=== PATIENT | female | born 1990 | race Caucasian/White ===

== ENCOUNTER 2018-11-13 16:30 | Emergency (ER) | payer BC, OTHER ==
[2018-11-13 16:39] VITALS: TEMP 97
[2018-11-13] MEDS ORDERED: METOCLOPRAMIDE 5 MG/ML 2 ML VIAL IVP STA (16:45)
[2018-11-13] MEDS ORDERED: SODIUM CHLORIDE 0.9% 2,000 ML IV STA (16:45)
[2018-11-13 17:33] LABS: Basophils % (A) 0 %; Eosinophils # (A) 0.2 k/uL (0-0.7); Eosinophils % (A) 2 %; HCT 41.3 % (34.0-46.0); HGB 13.8 gm/dL (11.4-16.0); Lymphocytes # (A) 1.8 k/uL (1.0-4.8); Lymphocytes % (A) 21 %; MCHC 33.5 g/dL (31.0-37.0); MCV 95.6 fL (80.0-100.0); Mean Platelet Volume 7.8; Monocytes # (A) 0.4 k/uL (0-1.0); Monocytes % (A) 4 %; Neutrophils % (A) 70 %; Platelet Count 263 k/uL (150-450); RBC 4.32 m/uL (3.80-5.40); RDW 13.2 % (11.5-15.5); WBC 8.5 k/uL (3.8-10.6)
[2018-11-13 17:41] LABS: Appearance,Urine Cloudy (Clear); Bacteria,Urine Rare /hpf; Bilirubin,Urine Negative (Negative); Blood,Urine Negative (Negative); Color,Urine Yellow; Glucose,Urine (UA) Negative (Negative); Ketones,Urine Negative (Negative); Leukocyte Esterase,Urine Large (Negative); Mucus,Urine Occasional /hpf; Nitrite,Urine Negative (Negative); Protein,Urine Trace (Negative); RBC,Urine 9 /hpf (0-5); Specific Gravity,Urine 1.021 (1.001-1.035); Squamous Epithelial Cell,Urine 14 /hpf (0-4); Urobilinogen,Urine <2.0 mg/dL (<2.0); WBC,Urine 22 /hpf (0-5)
[2018-11-13 17:44] LABS: ALT 32 U/L (9-52); AST 24 U/L (14-36); Albumin 4.4 g/dL (3.5-5.0); Alkaline Phosphatase 58 U/L (38-126); Anion Gap 10 mmol/L; Blood Urea Nitrogen 13 mg/dL (7-17); Calcium 9.7 mg/dL (8.4-10.2); Carbon Dioxide 20 mmol/L (22-30); Chloride 108 mmol/L (98-107); Glucose 103 mg/dL (74-99); Lipase 125 U/L (23-300); Potassium 4.2 mmol/L (3.5-5.1); Sodium 138 mmol/L (137-145); Total Bilirubin 0.6 mg/dL (0.2-1.3); Total Protein 7.5 g/dL (6.3-8.2)
--- NOTE | 2018-11-13 18:53 | US ---
EXAMINATION TYPE: Transabdominal DATE OF EXAM: 01/06/18 COMPARISON: NONE CLINICAL HISTORY: Pain. Patient states unable to keep anything down EXAM PERFORMED: Transabdominal (TA) EXAM MEASUREMENTS: GESTATIONAL AGE / DATING Physician Established: Not yet established Dates by LMP: (4 weeks/1 days) EDC: 07/22/2019 Dates by First Scan: No previous this is first scan Dates by Current Scan for: (7 weeks/6 days) EDC: 06/26/2019 MATERNAL ANATOMY Uterus: 10.8 x 6.4 x 7.6 cm Right Ovary: 2.9 x 1.8 x 2.6 cm Left Ovary: 1.6 x 1.5 x 3.2 cm Post CDS / Adnexa: wnl Presence of free fluid: none GESTATION / SURVEY CRL: 1.5 cm (7 weeks/6 days) Yolk Sac (normal less than 6mm): 3 mm Heart Rate: 148 bpm Rhythm: Normal IUP: Viable IUP Date of LMP: 10/15/2018 Beta HcG (if available): not available Live IUP that does not correlate with LMP. IMPRESSION: Single live intrauterine with a sonographic age of 7 weeks and 6 days and estimated date of delivery of 06/26/2019, discordant with menstrual age. No complicating process is identified.
--- NOTE | 2018-11-13 19:07 | ED ---
Abdominal Pain HPI - General Chief Complaint: Abdominal Pain Stated Complaint: , NAUSEA, VOMITING Time Seen by Provider: 11/13/18 16:45 Source: patient, RN notes reviewed Mode of arrival: ambulatory Limitations: no limitations - History of Present Illness Initial Comments: 28-year-old female sent emergency Department with chief complaint of nausea vomiting early . Patient states that she's never had this with other pregnancies. Patient is A1. Patient denies any vaginal bleeding or vaginal discharge. Patient states her REGRADER Dr. Lezama. Patient states that she does feel dehydrated. Patient reports no fever, chills, headache, dizziness , chest pain or shortness breath. - Related Data Home Medications Medication Instructions Recorded Confirmed Buprenorphine HCl/Naloxone HCl 1 film SL BID 11/13/18 11/13/18 [Suboxone 8 mg-2 mg Sl Film] Folic Acid 1 mg PO HS 11/13/18 11/13/18 Levothyroxine Sodium [Synthroid] 12.5 mcg PO HS 11/13/18 11/13/18 Sertraline [Zoloft] 100 mg PO HS 11/13/18 11/13/18 Previous Rx's Medication Instructions Recorded Metoclopramide [Reglan] 10 mg PO TID PRN #15 tab 11/13/18 Nitrofurantoin Monohyd/M-Cryst 100 mg PO Q12HR #10 cap 11/13/18 [Macrobid] Allergies Allergy/AdvReac Type Severity Reaction Status Date / Time Penicillins Allergy Anaphylaxis Verified 11/13/18 16:58 Review of Systems ROS Statement: Those systems with pertinent positive or pertinent negative responses have been documented in the HPI. ROS Other: All systems not noted in ROS Statement are negative. Past Medical History Past Medical History: Asthma Additional Past Medical History / Comment(s): Obstetric history: First was vaginal delivery 6#4oz, second was a vaginal delivery 7# 6oz. Third was a spontaneous . This is her fourth . A +, abs neg, Rub nonimmune, Hep B neg, HIV NR. normal anatomy US. GBS +. History of Any Multi-Drug Resistant Organisms: None Reported Past Surgical History: No Surgical Hx Reported Past Psychological History: Anxiety, Depression Smoking Status: Current every day smoker Past Alcohol Use History: None Reported Past Drug Use History: None Reported General Exam Limitations: no limitations General appearance: alert, in no apparent distress Head exam: Present: atraumatic, normocephalic, normal inspection Eye exam: Present: normal appearance, PERRL, EOMI. Absent: scleral icterus, conjunctival injection, periorbital swelling ENT exam: Present: normal exam, normal oropharynx, mucous membranes moist Neck exam: Present: normal inspection. Absent: tenderness, meningismus, lymphadenopathy Respiratory exam: Present: normal lung sounds bilaterally. Absent: respiratory distress, wheezes, rales, rhonchi, stridor Cardiovascular Exam: Present: regular rate, normal rhythm, normal heart sounds. Absent: systolic murmur, diastolic murmur, rubs, gallop, clicks GI/Abdominal exam: Present: soft, normal bowel sounds. Absent: distended, tenderness, guarding, rebound, rigid Back exam: Absent: CVA tenderness (R), CVA tenderness (L) Course Vital Signs 11/13/18 16:36 Temperature 97 F L Pulse Rate 72 Respiratory 18 Rate Blood Pressure 129/85 O2 Sat by Pulse 98 Oximetry Medical Decision Making - Medical Decision Making 28-year-old female presents emergency present for nausea vomiting . Patient has single viable IUP 7 weeks and 6 days. Patient does have asymptomatic bacteriuria in will be treated with Macrobid. Patient fully given antiemetics short course at home and she will follow-up with REGRADER. - Lab Data Result diagrams: 11/13/18 17:00 11/13/18 17:00 Lab Results 11/13/18 11/13/18 11/13/18 Range/Units 17:00 17:00 17:00 WBC 8.5 (3.8-10.6) k/uL RBC 4.32 (3.80-5.40) m/uL Hgb 13.8 (11.4-16.0) gm/dL Hct 41.3 (34.0-46.0) % MCV 95.6 (80.0-100.0) fL MCH 32.0 (25.0-35.0) pg MCHC 33.5 (31.0-37.0) g/dL RDW 13.2 (11.5-15.5) % Plt Count 263 (150-450) k/uL Neutrophils % 70 % Lymphocytes % 21 % Monocytes % 4 % Eosinophils % 2 % Basophils % 0 % Neutrophils # 6.0 (1.3-7.7) k/uL Lymphocytes # 1.8 (1.0-4.8) k/uL Monocytes # 0.4 (0-1.0) k/uL Eosinophils # 0.2 (0-0.7) k/uL Basophils # 0.0 (0-0.2) k/uL Sodium 138 (137-145) mmol/L Potassium 4.2 (3.5-5.1) mmol/L Chloride 108 H (98-107) mmol/L Carbon Dioxide 20 L (22-30) mmol/L Anion Gap 10 mmol/L BUN 13 (7-17) mg/dL Creatinine 0.52 (0.52-1.04) mg/dL Est GFR (CKD-EPI)AfAm >90 (>60 ml/min/1.73 sqM) Est GFR (CKD-EPI)NonAf >90 (>60 ml/min/1.73 sqM) Glucose 103 H (74-99) mg/dL Calcium 9.7 (8.4-10.2) mg/dL Total Bilirubin 0.6 (0.2-1.3) mg/dL AST 24 (14-36) U/L ALT 32 (9-52) U/L Alkaline Phosphatase 58 (38-126) U/L Total Protein 7.5 (6.3-8.2) g/dL Albumin 4.4 (3.5-5.0) g/dL Lipase 125 (23-300) U/L Urine Color Yellow Urine Appearance Cloudy H (Clear) Urine pH 6.0 (5.0-8.0) Ur Specific [place] 1.021 (1.001-1.035) Urine Protein Trace H (Negative) Urine Glucose (UA) Negative (Negative) Urine Ketones Negative (Negative) Urine Blood Negative (Negative) Urine Nitrite Negative (Negative) Urine Bilirubin Negative (Negative) Urine Urobilinogen <2.0 (<2.0) mg/dL Ur Leukocyte Esterase Large H (Negative) Urine RBC 9 H (0-5) /hpf Urine WBC 22 H (0-5) /hpf Ur Squamous Epith Cells 14 H (0-4) /hpf Urine Bacteria Rare H (None) /hpf Urine Mucus Occasional H (None) /hpf Disposition Clinical Impression: Nausea/vomiting in , Asymptomatic bacteriuria during Disposition: HOME SELF-CARE Condition: Stable Instructions (If sedation given, give patient instructions): Nausea and Vomiting in (ED) Additional Instructions: Please return to the Emergency Department if symptoms worsen or any other concerns. Prescriptions: Metoclopramide [Reglan] 10 mg PO TID PRN #15 tab PRN Reason: GERD Nitrofurantoin Monohyd/M-Cryst [Macrobid] 100 mg PO Q12HR #10 cap Is patient prescribed a controlled substance at d/c from ED?: No Referrals: Shruthi Piedra MD [Primary Care Provider] - 1-2 days Zina Lezama MD [REFERRING] - 1-2 days Time of Disposition: 19:07
[2018-11-13 19:31] VITALS: BP 112/80; PULSE 63; RESP 14
== END 2018-11-13 19:30 | disposition home or self-care (01) ==
LOC: EC 16:30
DX: O21.9 Vomiting of pregnancy, unspecified (principal); O99.89 Other specified diseases and conditions complicating pregnancy, childbirth and the puerperium; R82.71 Bacteriuria; R10.9 Unspecified abdominal pain; O99.281 Endocrine, nutritional and metabolic diseases complicating pregnancy, first trimester; E86.0 Dehydration; O99.341 Other mental disorders complicating pregnancy, first trimester; F41.9 Anxiety disorder, unspecified; F32.9 Major depressive disorder, single episode, unspecified; O99.331 Smoking (tobacco) complicating pregnancy, first trimester; F17.200 Nicotine dependence, unspecified, uncomplicated; Z79.890 Hormone replacement therapy; Z79.899 Other long term (current) drug therapy; Z88.0 Allergy status to penicillin; Z3A.01 Less than 8 weeks gestation of pregnancy
CPT/HCPCS: 36415; 80053; 83690; 85025; 81001; 84702; 87086; 76801; 99284; 96374; 96361 ×2; J2765

== ENCOUNTER 2020-10-03 13:32 | Emergency (ER) | payer BC, OTHER ==
[2020-10-03 13:35] VITALS: TEMP 97.6
[2020-10-03 14:37] VITALS: RESP 18
[2020-10-03 14:46] LABS: Basophils % (A) 1 %; Eosinophils # (A) 0.1 k/uL (0-0.7); Eosinophils % (A) 1 %; HCT 40.2 % (34.0-46.0); HGB 13.6 gm/dL (11.4-16.0); Lymphocytes # (A) 1.8 k/uL (1.0-4.8); Lymphocytes % (A) 22 %; MCH 34.2 pg (25.0-35.0); MCHC 33.8 g/dL (31.0-37.0); MCV 101.1 fL (80.0-100.0); Macrocytosis Slight; Mean Platelet Volume 7.5; Monocytes # (A) 0.4 k/uL (0-1.0); Monocytes % (A) 4 %; Neutrophils # (A) 5.9 k/uL (1.3-7.7); Neutrophils % (A) 71 %; Platelet Count 246 k/uL (150-450); RBC 3.98 m/uL (3.80-5.40); RDW 13.6 % (11.5-15.5); WBC 8.3 k/uL (3.8-10.6)
[2020-10-03 14:48] LABS: Appearance,Urine Clear (Clear); Bilirubin,Urine 1+ (Negative); Blood,Urine Small (Negative); Color,Urine Dark Yellow; Glucose,Urine (UA) Negative (Negative); Hyaline Casts,Urine 1 /lpf (0-2); Ketones,Urine Trace (Negative); Leukocyte Esterase,Urine Negative (Negative); Mucus,Urine Many /hpf; Nitrite,Urine Negative (Negative); Protein,Urine 1+ (Negative); RBC,Urine 2 /hpf (0-5); Squamous Epithelial Cell,Urine 3 /hpf (0-4); WBC,Urine 2 /hpf (0-5)
[2020-10-03 14:53] LABS: AST 24 U/L (14-36); African American GFR (CKD) >90 (>60 ml/min/1.73 sqM); Albumin 4.2 g/dL (3.5-5.0); Anion Gap 8 mmol/L; Blood Urea Nitrogen 10 mg/dL (7-17); Calcium 9.3 mg/dL (8.4-10.2); Carbon Dioxide 25 mmol/L (22-30); Chloride 105 mmol/L (98-107); Glucose 115 mg/dL (74-99); Non-African American GFR(CKD) >90 (>60 ml/min/1.73 sqM); Potassium 4.7 mmol/L (3.5-5.1); Sodium 138 mmol/L (137-145); Total Bilirubin 0.4 mg/dL (0.2-1.3); Total Protein 7.1 g/dL (6.3-8.2)
[2020-10-03 14:54] LABS: ALT 28 U/L (4-34); Alkaline Phosphatase 56 U/L (38-126)
[2020-10-03 15:09] LABS: HCG,Quantitative Serum 14954.2 mIU/mL
--- NOTE | 2020-10-03 15:37 | US ---
EXAMINATION TYPE: Transabdominal DATE OF EXAM: 10/03/2020 3:16 PM COMPARISON: NONE CLINICAL HISTORY: 7wks, bleeding, cramping x 1 day. ; C section x 1. Positive beta hCG test. EXAM PERFORMED: Transvaginal (TV) and Transabdominal (TA) EXAM MEASUREMENTS: GESTATIONAL AGE / DATING Physician Established: Not yet established Dates by LMP: (7 weeks/0 days) EDC: 05/22/2021 Dates by First Scan: No previous Dates by Current Scan for: (5 weeks/3 days) EDC: 05/07/2021 MATERNAL ANATOMY Uterus: 9.9 x 6.5 x 4.8cm Right Ovary: 2.5 x 2.5 x 2.0cm Left Ovary: 2.1 x 1.8 x 1.4cm Post CDS / Adnexa: wnl Presence of free fluid: no Presence of corpus luteal cyst: in right ovary = 1.3 x 1.6 x 1.2cm Presence of subchorionic bleed: no GESTATION / SURVEY CRL: no seen MSD: 1.3cm (5 weeks/3 days) Yolk Sac (normal less than 6mm): 2.6mm IUP: Single gestational sac with yolk sac is suspected mid uterus Date of LMP: 08/15/2020 Beta HcG (if available): NA Possible single gestational sac with yolk sac located mid uterus = 5 weeks/3 days, EDC: 05/07/2021. Anteverted uterus. There is oval anechoic area measuring 1.5 x 1.0 x 1.4 cm that has peripheral rim h yperechoic 3 mm structure. Findings could reflect early gestational sac and yolk sac. No pole i dentified. No free fluid in pelvis currently. Both ovaries seen with right ovary showing 1.3 cm peripheral hypervascular hyperechoic lesion thought to reflect corpus luteal cyst. No concerning extra ovarian adnexal masses. Technologist harper few incidental tiny nabothian cysts in the cervix. IMPRESSION: Findings favored too early to visualize intrauterine but spontaneous i s in differential and ectopic is not entirely excluded. Serial beta hCG and ultrasound foll ow-up advised.
--- NOTE | 2020-10-03 16:04 | ED ---
Female Urogenital HPI - General Chief complaint: Vaginal Bleeding Stated complaint: 7 Wks preg,Vaginal Bleeding Source: patient Mode of arrival: ambulatory Limitations: no limitations - History of Present Illness Initial comments: Patient is a 30-year-old female presenting to the emergency Department with complaints of vaginal bleeding as well as some mild cramping that started this morning. Patient is currently 7 weeks , , her TRACK DRESSER is out of [facility]. Patient states she did have a lab test 2 weeks ago which showed her beta levels around 200. Patient states she noticed some light bleeding this morning and it did become a little bit heavier throughout the days that she called her TRACK DRESSER and they recommended her coming into the ER. Patient has been having some very mild lower abdominal cramping no significant pains. She denies any nausea, vomiting, fever, chills, no chest pain or shortness of breath. Patient has no further complaints at this time. Upon arrival to the ER, her vitals are stable. - Related Data Home Medications Medication Instructions Recorded Confirmed Acetaminophen Tab [Tylenol Tab] 1,000 mg PO Q6HR PRN 10/03/20 10/03/20 Methadone [Dolophine] 75 mg PO DAILY 10/03/20 10/03/20 Allergies Allergy/AdvReac Type Severity Reaction Status Date / Time Penicillins Allergy Anaphylaxis Verified 10/03/20 14:06 Review of Systems ROS Statement: Those systems with pertinent positive or pertinent negative responses have been documented in the HPI. ROS Other: All systems not noted in ROS Statement are negative. Past Medical History Past Medical History: Asthma Additional Past Medical History / Comment(s): Obstetric history: First was vaginal delivery 6#4oz, second was a vaginal delivery 7#6oz. Third was a spontaneous . This is her fourth . A+, abs neg, Rub nonimmune, Hep B neg, HIV NR. normal anatomy US. GBS +. History of Any Multi-Drug Resistant Organisms: None Reported Past Surgical History: No Surgical Hx Reported Past Psychological History: Anxiety, Depression Smoking Status: Current every day smoker Past Alcohol Use History: None Reported Past Drug Use History: None Reported General Exam - General Exam Comments Initial Comments: GENERAL: Patient is well-developed and well-nourished. Patient is nontoxic and in no acute distress. HEAD: Atraumatic, normocephalic. EYES: Pupils equal round and reactive to light, extraocular movements intact, sclera anicteric, conjunctiva are normal. Eyelids were unremarkable. ENT: TMs normal, nares patent, oropharynx clear without exudates. Moist mucous membranes. NECK: Normal range of motion, supple without lymphadenopathy or JVD. LUNGS: Unlabored respirations. Breath sounds clear to auscultation bilaterally and equal. No wheezes rales or rhonchi. HEART: Regular rate and rhythm without murmurs, rubs or gallops. ABDOMEN: Soft, nontender, normoactive bowel sounds. No guarding, no rebound. No masses appreciated. MUSCULOSKELETAL: Normal extremities with adequate strength and normal range of motion, no pitting or edema. No clubbing or cyanosis. NEUROLOGICAL: Patient is alert and oriented x 3. Motor and sensory are also intact. Cranial nerves II through XII grossly intact. Symmetrical smile. Normal speech, normal gait. PSYCH: Normal mood, normal affect. SKIN: Warm, Dry, normal turgor, no rashes or lesions noted. Limitations: no limitations External exam: Present: normal external exam Speculum exam: Present: vaginal bleeding (Very mild) By manual exam: Present: normal by manual exam Course Vital Signs 10/03/20 10/03/20 10/03/20 13:34 14:35 15:00 Temperature 97.6 F Pulse Rate 109 H Respiratory 16 18 18 Rate Blood Pressure 142/93 O2 Sat by Pulse 99 Oximetry 10/03/20 10/03/20 16:00 16:09 Temperature 97.6 F Pulse Rate 89 Respiratory 18 18 Rate Blood Pressure 125/96 O2 Sat by Pulse 100 Oximetry Medical Decision Making - Medical Decision Making Patient is a 30-year-old female, currently 7 weeks , presenting with mild vaginal bleeding and mild cramping that started today. , TRACK DRESSER is out of [facility]. Vital signs stable upon arrival, her exam is unremarkable except for some mild vaginal bleeding. Labs show normal hemoglobin, hCG Quant is almost 15,000. Her urine has a small amount of blood, no signs of bacteria. Ultrasound reveals a possible single gestational sac with a yolk sac however no pole is yet identified. This could represent too early to visualize intrauterine but possible spontaneous miscarriage is possible. I discussed these findings with the patient. She is stable for discharge at this time. I will give her a lab slip to have beta retested and 40 hours. She can also follow up with her TRACK DRESSER. She is in agreement this plan of care. Return parameters were discussed with the patient she verbalized understanding. Case discussed with Dr. Hackett. - Lab Data Result diagrams: 10/03/20 14:36 10/03/20 14:36 Lab Results 10/03/20 10/03/20 10/03/20 Range/Units 14:36 14:36 14:36 WBC 8.3 (3.8-10.6) k/uL RBC 3.98 (3.80-5.40) m/uL Hgb 13.6 (11.4-16.0) gm/dL Hct 40.2 (34.0-46.0) % MCV 101.1 H (80.0-100.0) fL MCH 34.2 (25.0-35.0) pg MCHC 33.8 (31.0-37.0) g/dL RDW 13.6 (11.5-15.5) % Plt Count 246 (150-450) k/uL MPV 7.5 Neutrophils % 71 % Lymphocytes % 22 % Monocytes % 4 % Eosinophils % 1 % Basophils % 1 % Neutrophils # 5.9 (1.3-7.7) k/uL Lymphocytes # 1.8 (1.0-4.8) k/uL Monocytes # 0.4 (0-1.0) k/uL Eosinophils # 0.1 (0-0.7) k/uL Basophils # 0.0 (0-0.2) k/uL Macrocytosis Slight Sodium 138 (137-145) mmol/L Potassium 4.7 (3.5-5.1) mmol/L Chloride 105 (98-107) mmol/L Carbon Dioxide 25 (22-30) mmol/L Anion Gap 8 mmol/L BUN 10 (7-17) mg/dL Creatinine 0.61 (0.52-1.04) mg/dL Est GFR (CKD-EPI)AfAm >90 (>60 ml/min/1.73 sqM) Est GFR (CKD-EPI)NonAf >90 (>60 ml/min/1.73 sqM) Glucose 115 H (74-99) mg/dL Calcium 9.3 (8.4-10.2) mg/dL Total Bilirubin 0.4 (0.2-1.3) mg/dL AST 24 (14-36) U/L ALT 28 (4-34) U/L Alkaline Phosphatase 56 (38-126) U/L Total Protein 7.1 (6.3-8.2) g/dL Albumin 4.2 (3.5-5.0) g/dL HCG, Quant 13403.2 mIU/mL Urine Color Dark Yellow Urine Appearance Clear (Clear) Urine pH 6.0 (5.0-8.0) Ur Specific [place] 1.050 H (1.001-1.035) Urine Protein 1+ H (Negative) Urine Glucose (UA) Negative (Negative) Urine Ketones Trace H (Negative) Urine Blood Small H (Negative) Urine Nitrite Negative (Negative) Urine Bilirubin 1+ H (Negative) Urine Urobilinogen 3.0 (<2.0) mg/dL Ur Leukocyte Esterase Negative (Negative) Urine RBC 2 (0-5) /hpf Urine WBC 2 (0-5) /hpf Ur Squamous Epith Cells 3 (0-4) /hpf Hyaline Casts 1 (0-2) /lpf Urine Mucus Many H (None) /hpf Disposition Clinical Impression: , Threatened , Vaginal bleeding Disposition: HOME SELF-CARE Condition: Stable Instructions (If sedation given, give patient instructions): Threatened Miscarriage (ED) Additional Instructions: Please return to the Emergency Department if symptoms worsen or any other concerns. Repeat beta hCG in 48 hours as discussed. Follow up with her TRACK DRESSER. Is patient prescribed a controlled substance at d/c from ED?: No Referrals: Macario Cardozo DO [Primary Care Provider] - 1-2 days
[2020-10-03 16:13] VITALS: BP 125/96; PULSE 89
== END 2020-10-03 16:12 | disposition home or self-care (01) ==
LOC: EC 13:32
DX: O20.0 Threatened abortion (principal); Z3A.01 Less than 8 weeks gestation of pregnancy; O99.331 Smoking (tobacco) complicating pregnancy, first trimester; F17.200 Nicotine dependence, unspecified, uncomplicated; Z88.0 Allergy status to penicillin
CPT/HCPCS: 36415; 76801; 76817; 80053; 81001; 84702; 85025; 99284

== ENCOUNTER 2020-10-04 12:03 | Emergency (ER) | payer OTHER ==
[2020-10-04 12:15] VITALS: RESP 18
[2020-10-04 13:24] LABS: Basophils % (A) 0 %; Eosinophils # (A) 0.1 k/uL (0-0.7); Eosinophils % (A) 1 %; HCT 40.9 % (34.0-46.0); HGB 13.2 gm/dL (11.4-16.0); Lymphocytes # (A) 1.5 k/uL (1.0-4.8); Lymphocytes % (A) 20 %; MCH 32.3 pg (25.0-35.0); MCHC 32.2 g/dL (31.0-37.0); MCV 100.5 fL (80.0-100.0); Macrocytosis Slight; Mean Platelet Volume 7.8; Monocytes # (A) 0.4 k/uL (0-1.0); Monocytes % (A) 5 %; Neutrophils # (A) 5.2 k/uL (1.3-7.7); Neutrophils % (A) 72 %; Platelet Count 255 k/uL (150-450); RBC 4.07 m/uL (3.80-5.40); RDW 13.8 % (11.5-15.5); WBC 7.3 k/uL (3.8-10.6)
--- NOTE | 2020-10-04 14:11 | ED ---
Female Urogenital HPI - General Chief complaint: Vaginal Bleeding Stated complaint: 7 weeks and spotting Time Seen by Provider: 10/04/20 12:29 Source: patient Mode of arrival: ambulatory Limitations: no limitations - History of Present Illness Initial comments: 30-year-old female presenting today for chief complaint of vaginal bleeding increased. Patient states that she currently is 7 weeks . She states that she had ultrasound yesterday which revealed a sac with no pole. Patient states she had mild bleeding at that time and 1 hour after leaving the emergency department the bleeding had subsided. Patient states arou nd 10 PM the bleeding began again and she plastic piece size clot she was not sure if this was the baby. Patient states that she has not had any abdominal pain or any abdominal cramping she states that the bleeding is less than that of a period. Patient denies any nausea vomiting chest pain shortness of breath and leg swelling headaches. No additional complaints. - Related Data Home Medications Medication Instructions Recorded Confirmed Acetaminophen Tab [Tylenol Tab] 1,000 mg PO Q6HR PRN 10/03/20 10/04/20 Methadone [Dolophine] 75 mg PO DAILY 10/03/20 10/04/20 Allergies Allergy/AdvReac Type Severity Reaction Status Date / Time amoxicillin Allergy Unknown Verified 10/04/20 12:27 Penicillins Allergy Anaphylaxis Verified 10/04/20 12:27 Review of Systems ROS Statement: Those systems with pertinent positive or pertinent negative responses have been documented in the HPI. ROS Other: All systems not noted in ROS Statement are negative. Past Medical History Past Medical History: Asthma Additional Past Medical History / Comment(s): Obstetric history: First was vaginal delivery 6#4oz, second was a vaginal delivery 7#6oz. Third was a spontaneous . This is her fourth . A+, abs neg, Rub nonimmune, Hep B neg, HIV NR. normal anatomy US. GBS +. History of Any Multi-Drug Resistant Organisms: None Reported Past Surgical History: No Surgical Hx Reported Past Psychological History: Anxiety, Depression Smoking Status: Current every day smoker Past Alcohol Use History: None Reported Past Drug Use History: None Reported General Exam - General Exam Comments Initial Comments: General: The patient is awake and alert, in no distress, but is tearful states shes is sad. Eye: Pupils are equal, round and reactive to light, extra-ocular movements are intact. No nystagmus. There is normal conjunctiva bilaterally. No signs of icterus. . Cardiovascular: There is a regular rate and rhythm. No murmur, rub or gallop is appreciated. Respiratory: Lungs are clear to auscultation, respirations are non-labored, breath sounds are equal. No wheezes, stridor, rales, or rhonchi. Gastrointestinal: Soft, non-distended, non-tender abdomen without masses or organomegaly noted. There is no rebound or guarding present. : Minimal to no blood in vault os has a slightly open appearance Musculoskeletal: Normal ROM, no tenderness. Strength 5/5. Sensation intact. Pulses equal bilaterally 2+. Neurological: A&O x 3. CN II-XII intact grossly, There are no obvious motor or sensory deficits. Coordination appears grossly intact. Speech is normal. Skin: Skin is warm and dry and no rashes or lesions are noted. Psychiatric: Cooperative, appropriate mood & affect, normal judgment. Limitations: no limitations Course Vital Signs 10/04/20 12:12 Temperature 98.7 F Pulse Rate 118 H Respiratory 18 Rate Blood Pressure 136/93 O2 Sat by Pulse 99 Oximetry Medical Decision Making - Medical Decision Making hgb stable. minimal bleeding on exam. A+. no pain. repeat HcG--increasing. with no definitive IUP with elevated HCG levels this is concerning and OBGYN was paged for consultation. Dr Cline states that he feels ectopic is felt less likely. he states that if patient is pain free, minimal bleeding she is agreeable to discharge with obgyn f/u with repeat US next week. ptis to return to nearest ER for heavy bleeding/pain. pt case discussed with Dr. Castro who is agreeable to care plan and dishcarge. - Lab Data Result diagrams: 10/04/20 13:04 Lab Results 10/04/20 10/04/20 10/04/20 Range/Units 13:04 13:04 13:04 WBC 7.3 (3.8-10.6) k/uL RBC 4.07 (3.80-5.40) m/uL Hgb 13.2 (11.4-16.0) gm/dL Hct 40.9 (34.0-46.0) % MCV 100.5 H (80.0-100.0) fL MCH 32.3 (25.0-35.0) pg MCHC 32.2 (31.0-37.0) g/dL RDW 13.8 (11.5-15.5) % Plt Count 255 (150-450) k/uL MPV 7.8 Neutrophils % 72 % Lymphocytes % 20 % Monocytes % 5 % Eosinophils % 1 % Basophils % 0 % Neutrophils # 5.2 (1.3-7.7) k/uL Lymphocytes # 1.5 (1.0-4.8) k/uL Monocytes # 0.4 (0-1.0) k/uL Eosinophils # 0.1 (0-0.7) k/uL Basophils # 0.0 (0-0.2) k/uL Macrocytosis Slight HCG, Quant 23558.7 mIU/mL Blood Type A Positive Blood Type Recheck A Pos Bld Type Recheck Status No Disposition Clinical Impression: Vaginal bleeding during , Threatened miscarriage Disposition: HOME SELF-CARE Condition: Good Instructions (If sedation given, give patient instructions): Threatened Miscarriage (ED) Additional Instructions: Please use medication as discussed. Please follow-up with OBGYN in next week for repeat US, if pain develops please return to the ER. Please return to emergency room if the symptoms increase or worsen or for any other concerns. Is patient prescribed a controlled substance at d/c from ED?: No Referrals: Macario Cardozo DO [Primary Care Provider] - 1-2 days Time of Disposition: 14:10
[2020-10-04 14:58] VITALS: BP 132/72; PULSE 90; TEMP 98.2
== END 2020-10-04 14:58 | disposition home or self-care (01) ==
LOC: EC 12:03
DX: O20.0 Threatened abortion (principal); O20.9 Hemorrhage in early pregnancy, unspecified; O99.331 Smoking (tobacco) complicating pregnancy, first trimester; F17.200 Nicotine dependence, unspecified, uncomplicated; Z3A.01 Less than 8 weeks gestation of pregnancy; Z79.899 Other long term (current) drug therapy; Z88.0 Allergy status to penicillin
CPT/HCPCS: 36415; 84702; 85025; 86900; 86901; 99284

== ENCOUNTER 2020-11-05 18:21 | Emergency (ER) | payer OTHER ==
[2020-11-05 18:27] VITALS: TEMP 98.2
[2020-11-05] MEDS ORDERED: SODIUM CHLORIDE 0.9% 1,000 ML IV ONE (18:29)
[2020-11-05] MEDS ORDERED: SODIUM CHLORIDE 0.9% 500 ML 500 ML IV ONE (18:29)
[2020-11-05] MEDS ORDERED: SODIUM CHLORIDE 0.9% 1,000 ML IV SCH (18:30)
[2020-11-05 18:59] LABS: Appearance,Urine Clear (Clear); Bilirubin,Urine Negative (Negative); Blood,Urine Negative (Negative); Color,Urine Yellow; Glucose,Urine (UA) Negative (Negative); Ketones,Urine Negative (Negative); Leukocyte Esterase,Urine Negative (Negative); Nitrite,Urine Negative (Negative); PH, Urine 7.5 (5.0-8.0); Protein,Urine Negative (Negative); Specific Gravity,Urine 1.026 (1.001-1.035)
[2020-11-05] MEDS ORDERED: diphenhydrAMINE 50 MG/ML 1 ML VIAL IVP STA (19:02)
[2020-11-05] MEDS ORDERED: ONDANSETRON 4 MG/2 ML VIAL IVP STA (19:02)
[2020-11-05 19:04] LABS: Basophils % (A) 0 %; Eosinophils # (A) 0.1 k/uL (0-0.7); Eosinophils % (A) 1 %; HCT 39.7 % (34.0-46.0); HGB 13.2 gm/dL (11.4-16.0); Lymphocytes # (A) 1.6 k/uL (1.0-4.8); Lymphocytes % (A) 15 %; MCH 32.5 pg (25.0-35.0); MCHC 33.3 g/dL (31.0-37.0); MCV 97.5 fL (80.0-100.0); Mean Platelet Volume 8.4; Monocytes # (A) 0.3 k/uL (0-1.0); Monocytes % (A) 3 %; Neutrophils # (A) 8.4 k/uL (1.3-7.7); Neutrophils % (A) 80 %; Platelet Count 235 k/uL (150-450); RBC 4.07 m/uL (3.80-5.40); RDW 12.7 % (11.5-15.5); WBC 10.4 k/uL (3.8-10.6)
[2020-11-05 19:06] LABS: ALT 17 U/L (4-34); AST 23 U/L (14-36); African American GFR (CKD) >90 (>60 ml/min/1.73 sqM); Albumin 4.2 g/dL (3.5-5.0); Alkaline Phosphatase 63 U/L (38-126); Anion Gap 12 mmol/L; Blood Urea Nitrogen 8 mg/dL (7-17); Calcium 9.6 mg/dL (8.4-10.2); Carbon Dioxide 19 mmol/L (22-30); Chloride 106 mmol/L (98-107); Glucose 100 mg/dL (74-99); Magnesium 1.8 mg/dL (1.6-2.3); Non-African American GFR(CKD) >90 (>60 ml/min/1.73 sqM); Potassium 3.8 mmol/L (3.5-5.1); Sodium 137 mmol/L (137-145); Total Bilirubin 0.3 mg/dL (0.2-1.3); Total Protein 7.5 g/dL (6.3-8.2)
[2020-11-05] MEDS ORDERED: MORPHINE SULFATE 4 MG/ML SYRINGE IVP STA (19:15)
--- NOTE | 2020-11-05 20:18 | ED ---
Nausea/Vomiting/Diarrhea HPI - General Chief complaint: Nausea/Vomiting/Diarrhea Stated complaint: 10wks preg, methadone withdrawals Time Seen by Provider: 11/05/20 18:28 Source: patient Mode of arrival: ambulatory Limitations: no limitations - History of Present Illness Initial comments: 30-year-old female who is 10.5 week presenting today for chief complaint of nausea vomiting after taking a subsolv. patient states she threw up her methadone dose today. pt states she is on 75mg. patient states that her friend gave her a subsolv and she has been nauseated, jittery and feels just pain all over. pt denies abdominal pain, vaginal bleeding or cramping. pt states she didnt feel this bad until the subsolv. patient states its similar to sensat ion of withdrawing. pt states she only had mild vomiting with her in the morning usually, not like this afternoon. Remaining ROS (-). Upon arrival she appears well nontoxic in no acute distress. - Related Data Home Medications Medication Instructions Recorded Confirmed Acetaminophen Tab [Tylenol Tab] 1,000 mg PO Q6HR PRN 10/03/20 10/04/20 Methadone [Dolophine] 75 mg PO DAILY 10/03/20 10/04/20 Allergies Allergy/AdvReac Type Severity Reaction Status Date / Time amoxicillin Allergy Unknown Verified 11/05/20 18:27 Penicillins Allergy Anaphylaxis Verified 11/05/20 18:27 Review of Systems ROS Statement: Those systems with pertinent positive or pertinent negative responses have been documented in the HPI. ROS Other: All systems not noted in ROS Statement are negative. Past Medical History Past Medical History: Asthma Additional Past Medical History / Comment(s): Obstetric history: First was vaginal delivery 6#4oz, second was a vaginal delivery 7#6oz. Third was a spontaneous . This is her fourth . A+, abs neg, Rub nonimmune, Hep B neg, HIV NR. normal anatomy US. GBS +. History of Any Multi-Drug Resistant Organisms: None Reported Past Surgical History: No Surgical Hx Reported Past Psychological History: Anxiety, Depression Smoking Status: Current every day smoker Past Alcohol Use History: None Reported Past Drug Use History: Opiates General Exam - General Exam Comments Initial Comments: General: The patient is awake and alert Eye: +3 mm pupils are equal, round and reactive to light, extra-ocular movements are intact. No nystagmus. There is normal conjunctiva bilaterally. No signs of icterus. Ears, nose, mouth and throat: There are moist mucous membranes and no oral lesions. Neck: The neck is supple, there is no tenderness or JVD. Cardiovascular: There is a regular rate and rhythm. No murmur, rub or gallop is appreciated. Respiratory: Lungs are clear to auscultation, respirations are non-labored, breath sounds are equal. No wheezes, stridor, rales, or rhonchi. Gastrointestinal: Soft, non-distended, non-tender abdomen without masses or organomegaly noted. There is no rebound or guarding present. Musculoskeletal: Normal ROM, no tenderness. Strength 5/5. Sensation intact. Radial pulses equal bilaterally 2+. Neurological: A&O x 3. CN II-XII intact grossly, There are no obvious motor or sensory deficits. Coordination appears grossly intact. Speech is normal. Skin: Skin is warm and dry and no rashes or lesions are noted. Psychiatric: Cooperative, appropriate mood & affect, normal judgment. Limitations: no limitations Course Vital Signs 11/05/20 11/05/20 11/05/20 18:25 20:16 20:20 Temperature 98.2 F 98.2 F Pulse Rate 109 H 83 83 Respiratory 22 16 16 Rate Blood Pressure 119/74 125/80 125/80 O2 Sat by Pulse 99 98 98 Oximetry Medical Decision Making - Medical Decision Making Labs stable. Pt not actively vomiting in ER. UA unremarkable. no ketones. pt felt to have withdrawal like symptoms. discussed administering morphine with risk to fetus patient would like to proceed. improvement of symptoms. pt hydrated. bedside ultrasound fetus moving, HR ~150. Patient case discussed with Dr. Dan who is agreeable to dischaarge with PCP/OB f/u and regular methadone dosing tomorrow. - Lab Data Result diagrams: 11/05/20 18:47 11/05/20 18:47 Lab Results 11/05/20 11/05/20 11/05/20 Range/Units 18:47 18:47 18:47 WBC 10.4 (3.8-10.6) k/uL RBC 4.07 (3.80-5.40) m/uL Hgb 13.2 (11.4-16.0) gm/dL Hct 39.7 (34.0-46.0) % MCV 97.5 (80.0-100.0) fL MCH 32.5 (25.0-35.0) pg MCHC 33.3 (31.0-37.0) g/dL RDW 12.7 (11.5-15.5) % Plt Count 235 (150-450) k/uL MPV 8.4 Neutrophils % 80 % Lymphocytes % 15 % Monocytes % 3 % Eosinophils % 1 % Basophils % 0 % Neutrophils # 8.4 H (1.3-7.7) k/uL Lymphocytes # 1.6 (1.0-4.8) k/uL Monocytes # 0.3 (0-1.0) k/uL Eosinophils # 0.1 (0-0.7) k/uL Basophils # 0.0 (0-0.2) k/uL Sodium 137 (137-145) mmol/L Potassium 3.8 (3.5-5.1) mmol/L Chloride 106 (98-107) mmol/L Carbon Dioxide 19 L (22-30) mmol/L Anion Gap 12 mmol/L BUN 8 (7-17) mg/dL Creatinine 0.53 (0.52-1.04) mg/dL Est GFR (CKD-EPI)AfAm >90 (>60 ml/min/1.73 sqM) Est GFR (CKD-EPI)NonAf >90 (>60 ml/min/1.73 sqM) Glucose 100 H (74-99) mg/dL Calcium 9.6 (8.4-10.2) mg/dL Magnesium 1.8 (1.6-2.3) mg/dL Total Bilirubin 0.3 (0.2-1.3) mg/dL AST 23 (14-36) U/L ALT 17 (4-34) U/L Alkaline Phosphatase 63 (38-126) U/L Total Protein 7.5 (6.3-8.2) g/dL Albumin 4.2 (3.5-5.0) g/dL Urine Color Yellow Urine Appearance Clear (Clear) Urine pH 7.5 (5.0-8.0) Ur Specific [place] 1.026 (1.001-1.035) Urine Protein Negative (Negative) Urine Glucose (UA) Negative (Negative) Urine Ketones Negative (Negative) Urine Blood Negative (Negative) Urine Nitrite Negative (Negative) Urine Bilirubin Negative (Negative) Urine Urobilinogen 2.0 (<2.0) mg/dL Ur Leukocyte Esterase Negative (Negative) Disposition Clinical Impression: Nausea and vomiting during Disposition: HOME SELF-CARE Condition: Good Instructions (If sedation given, give patient instructions): Nausea and Vomiting in (ED) Additional Instructions: Please use medication as discussed. Please follow-up with family doctor in the next 2 days .. Please return to emergency room if the symptoms increase or worsen or for any other concerns. Is patient prescribed a controlled substance at d/c from ED?: No Referrals: Macario Cardozo DO [Primary Care Provider] - 1-2 days Time of Disposition: 20:18
[2020-11-05 20:19] VITALS: BP 125/80; PULSE 83; RESP 16
== END 2020-11-05 20:26 | disposition home or self-care (01) ==
LOC: EC 18:21
DX: O21.9 Vomiting of pregnancy, unspecified (principal); O99.331 Smoking (tobacco) complicating pregnancy, first trimester; F17.200 Nicotine dependence, unspecified, uncomplicated; Z3A.10 10 weeks gestation of pregnancy; Z88.0 Allergy status to penicillin
CPT/HCPCS: 99284 ×2; 96374 ×2; 96375 ×3; 96361 ×3; 36415; 80053; 83735; 85025; 81003; J2270; J1200; J2405

== ENCOUNTER 2024-03-25 16:32 | Outpatient (CLI) | payer OTHER ==
[2024-03-25 18:27] VITALS: BP 137/89; PULSE 90; RESP 17; TEMP 96.5
--- NOTE | 2024-03-28 16:00 | P.MSEPDOC ---
Presenting Problems - Arrival Data Date of Arrival on Unit: 03/25/24 Time of Arrival on Unit: 16:30 Mode of Transport: Ambulatory - Complaint OB-Reason for Admission/Chief Complaint: Possible Onset of Labor Comment: pt presents to triage for contractions that are more frequent and intense, was in the office this am and cervical exam 2.5/60/-2 Medical History - Information : 7 Para: 5 Term: 5 : 1 Abortions: Spontaneous or Elective: 0 Number of Living Children: 5 - Gestational Age Gestational Age by LAURA (wks/days): 36 Weeks and 4 Days - History Complications: Smoker Review of Systems - Review of Systems Constitutional: No problems Breast: No problems ENT: No problems Cardiovascular: No problems Respiratory: No problems Gastrointestinal: No problems Genitourinary: No problems Musculoskeletal: No problems Neurological: No problems Skin: No problems Vital Signs - Temperature Temperature: 96.5 F Temperature Source: Temporal Artery Scan - Pulse Right Brachial Pulse Rate: 90 Pulse Assessment Method: Automatic Cuff - Respirations Respiratory Rate: 17 Oxygen Delivery Method: Room Air O2 Sat by Pulse Oximetry: 98 - Blood Pressure Right Arm Blood Pressure: 137/89 Blood Pressure Mean: 105 Blood Pressure Source: Automatic Cuff Medical Screen Scoring - Cervical Exam Dilation (cm): 2.5 Effacement (%): 60 Station: -2 Membranes: Intact - Uterine Contractions Intensity: Mild Resting: Soft to palpation - Assessment - Baby A Baseline FHR: 135 Heart Rate - NICHD Category: Category I (Normal) NST: Reactive Physician Notification - Physician Notified Physician Notified Date: 03/25/24 Physician Notified Time: 17:54 Physician: Tawanna Carrillo New Order Received: Yes - Notification Comment Comment: nst reactive, irregular contractions, no cervical change in an hour, and same as in the office this am, 2.5/60/-2 Maternal Triage Index - Maternal Triage Index Presenting for scheduled procedure w/no complaint: No - Stat/Priority 1 Stat Priority 1: No - Urgent/Priority 2 Urgent Priority 2: No - Prompt/Priority 3 Prompt Priority 3: Yes Criteria Met for Priority 3: pt presents to triage for contractions that are more frequent and intense, was in the office this am and cervical exam 2.5/60/-2 Disposition - Disposition OB Disposition: Triage, Discharge to home, Written follow up instructions reviewed Discharge Date: 03/25/24 Discharge Time: 18:00 I agree with the RN Medical Screening Exam: Yes Physician's MSE Comment: I have neither seen nor examined the patient Case reviewed; plan agreed upon as documented in EMR&OBIX.: Yes Diagnosis: MATERNAL CARE FOR PROBLEM, UNSP, THIRD * DO NOT USE *
== END 2024-03-25 18:00 | disposition home or self-care (01) ==
LOC: FBPOP 16:32
PROVIDERS: ATTEND Obstetrics & Gynecology
DX: O47.03 False labor before 37 completed weeks of gestation, third trimester (principal); O99.333 Smoking (tobacco) complicating pregnancy, third trimester; F17.200 Nicotine dependence, unspecified, uncomplicated; Z3A.36 36 weeks gestation of pregnancy; Z88.0 Allergy status to penicillin
CPT/HCPCS: 59025; G0463; 99213

== ENCOUNTER 2024-04-12 17:26 | Inpatient (IN) | payer OTHER ==
[2024-04-12] MEDS: NA PHOS,M-B/NA PHOS,DI-BA 133 ML ENEMA RECTAL STA (18:43)
[2024-04-12] MEDS ORDERED: OXYTOCIN 10 UNIT/ML 1 ML VIAL IM PRN (19:52)
[2024-04-12] MEDS ORDERED: miSOPROStoL 200 MCG TAB PO PRN (19:52)
[2024-04-12] MEDS ORDERED: TRANEXAMIC 1,000 MG/100ML-NACL 1,000 MG in EMPTY BAG 1 BAG IV PRN (19:52)
[2024-04-12] MEDS ORDERED: METHYLERGONOVINE 0.2 MG/ML 1 ML AMP IM PRN (19:52)
[2024-04-12] MEDS ORDERED: miSOPROStoL 200 MCG TAB RECTAL PRN (19:52)
[2024-04-12] MEDS ORDERED: TERBUTALINE 1 MG/ML VIAL SQ PRN (19:52)
[2024-04-12] MEDS ORDERED: CARBOPROST TROMETHAMINE 250 MCG/ML 1 ML AMP IM PRN (19:52)
[2024-04-12] MEDS ORDERED: OXYTOCIN 30 UNITS/500 ML NS 30 UNIT in SALINE 1 500ML.BAG IV SCH (20:00)
[2024-04-12] MEDS: NALBUPHINE 10 MG/ML (10 ML MDV) IV PRN (20:22)
[2024-04-12] MEDS: LACTATED RINGERS 1,000 ML IV SCH (20:23)
[2024-04-12] MEDS: OXYTOCIN 30 UNITS/500 ML NS 30 UNIT in SALINE 1 500ML.BAG IV SCH (20:23)
[2024-04-12 21:00] LABS: Basophils % (A) 0 %; Eosinophils % (A) 0 %; HCT 39.2 % (34.0-46.0); HGB 13.4 gm/dL (11.4-16.0); Lymphocytes # (A) 1.4 k/uL (1.0-4.8); Lymphocytes % (A) 8 %; MCH 32.9 pg (25.0-35.0); MCHC 34.2 g/dL (31.0-37.0); MCV 96.1 fL (80.0-100.0); Mean Platelet Volume 10.6; Monocytes # (A) 0.7 k/uL (0-1.0); Monocytes % (A) 4 %; Neutrophils # (A) 16.3 k/uL (1.3-7.7); Neutrophils % (A) 88 %; Platelet Count 198 k/uL (150-450); RBC 4.08 m/uL (3.80-5.40); RDW 13.4 % (11.5-15.5); WBC 18.6 k/uL (3.8-10.6)
[2024-04-12] MEDS ORDERED: ROPIVACAINE 5 MG/ML 30 ML VIAL ONE (21:14)
[2024-04-12] MEDS ORDERED: SODIUM CHLORIDE 0.9% 250 ML BAG ONE (21:14)
[2024-04-12] MEDS ORDERED: fentaNYL (PF) 50 MCG/ML 5 ML AMP ONE (21:14)
--- NOTE | 2024-04-12 22:13 | P.HPOB ---
History of Present Illness H&P Date: 04/12/24 Chief Complaint: Contractions Ms. Foster is a 33 year old at 39 weeks and 1 day with EDC of 04/18/2024 by 10 week who presents to L&D in labor. While in triage, the patient was found to have impacted stool which was improved with a Fleet enema. Her cervix made change from 3 to 4 centimeters. The has been complicate by maternal anxiety, for which Zoloft 25mg was started at her new OB appointment with good effect. The patient also has a history of opioid dependence for which she is on methadone 20mg daily through [facility]. She has a history of asthma, which has been mild intermittent during this . Finally, the patient does have a history of a and this will be a TOLAC. history: 4 full term vaginal deliveries > 1 for breech presentation > successful > IUFD ~20 weeks secondary to presumed placental abruption Maternal work-up: blood type A positive, antibody screen negative, rubella non- immune, VDRL non-reactive, HBsAg negative, HIV negative, HCV Ab negative, gonorrhea negative, chlamydia negative, 1 1hour GTT wnl, GBS negative. s/p TDap 03/18. Past Medical History Past Medical History: Asthma Additional Past Medical History / Comment(s): Obstetric history: First was vaginal delivery 6#4oz, second was a vaginal delivery 7#6oz. Third was a spontaneous . This is her fourth . A+, abs neg, Rub nonimmune, Hep B neg, HIV NR. normal anatomy US. GBS +. History of Any Multi-Drug Resistant Organisms: None Reported Past Surgical History: No Surgical Hx Reported Past Anesthesia/Blood Transfusion Reactions: No Reported Reaction Past Psychological History: Anxiety, Depression Smoking Status: Current every day smoker, Vaper Past Alcohol Use History: None Reported Past Drug Use History: Opiates Medications and Allergies Home Medications Medication Instructions Recorded Confirmed Type Methadone [Dolophine] 37 mg PO DAILY 10/03/20 04/12/24 History Ferrous Sulfate [Feosol] 325 mg PO DAILY 03/25/24 04/12/24 History Vit No.179/Iron/Folic 1 each PO DAILY 03/25/24 04/12/24 History [ Tablet] Sertraline [Zoloft] 25 mg PO DAILY 03/25/24 04/12/24 History Allergies Allergy/AdvReac Type Severity Reaction Status Date / Time amoxicillin Allergy Rash/Hives Verified 04/12/24 17:27 Exam Intake and Output 04/12/24 04/12/24 04/12/24 06:59 14:59 22:59 Other: # Voids 3 Weight 95.254 kg Focused physical exam is performed. This is a healthy-appearing in no apparent distress. Breathing is non-labored. Abdomen is gravid and non-tender. Cervical exam is 6cm, 100% effacement, -2 station. AROM is undertaken with clear fluid noted. Extremities non-tender and non-edematous. heart tones are Category I and tocometer is graphing contractions every 2-4 minutes. Results Result Diagrams: 04/12/24 20:07 Abnormal Lab Results - Last 24 Hours (Table) 04/12/24 Range/Units 20:07 WBC 18.6 H (3.8-10.6) k/uL Neutrophils # 16.3 H (1.3-7.7) k/uL Assessment and Plan Assessment: 33 year old at 39 weeks and 1 day presenting in spontaneous labor Plan: Admit, clear liquid diet, s/p AROM, s/p epidural, pitocin per protocol, continuous EFM and tocometer. TOLAC, s/p counseling about associated risks. Anticipate vaginal delivery.
[2024-04-12] MEDS ORDERED: diphenhydrAMINE 25 MG CAP PO PRN (23:52)
[2024-04-12] MEDS ORDERED: BENZOCAINE/MENTHOL SPRAY 1 GM/SPRAY AEROSOL TOPICAL PRN (23:52)
[2024-04-12] MEDS ORDERED: HYDROCORTISONE 2.5% RECTAL CREAM 30 GM TUBE RECTAL PRN (23:52)
[2024-04-12] MEDS ORDERED: diphenhydrAMINE 50 MG CAP PO PRN (23:52)
[2024-04-12] MEDS ORDERED: ZOLPIDEM 5 MG TAB PO PRN (23:52)
[2024-04-12] MEDS ORDERED: diphenhydrAMINE 50 MG/ML 1 ML VIAL IVP PRN ×2 (23:52)
[2024-04-12] MEDS ORDERED: ACETAMINOPHEN TAB 325 MG TAB PO PRN (23:52)
[2024-04-12] MEDS ORDERED: SIMETHICONE 80 MG CHEWABLE PO PRN (23:52)
[2024-04-12] MEDS ORDERED: LANOLIN CREAM 1 GM TUBE TOPICAL PRN (23:52)
--- NOTE | 2024-04-12 23:52 | P.PROBDLV ---
Vaginal Delivery Note - . Vaginal Delivery Note: DATE OF SERVICE: 04/12/2024 PROCEDURE: Normal Vaginal Delivery ATTENDING: Dr. Rebeca Pickard MD ESTIMATED BLOOD LOSS: 200 mL FINDINGS: VFI, Apgars 8/9. Weight 7 pounds and 7 ounces (3390 grams) PROCEDURE: Ms. Foster is a 33 year old at 39 weeks and 1 day presenting to labor and delivery in spontaneous labor. The has been complicated by maternal methadone use. For further details, please review the admitting H&P. Pitocin was titrated per protocol. The patient received epidural anesthesia per her request. AROM was performed at 2151 revealing clear amniotic fluid. The patient was completely dilated at 2321. She pushed effectively with Category I heart tones. A viable female infant was delivered at 2330. The was placed on the maternal abdomen and bulb suctioned. The infant was noted to be spontaneously crying. Cord was clamped and cut after a 60-second delay. The infant was handed off to the pediatric team. Placenta was delivered whole with gentle cord traction at 2331. Oxytocin was started to facilitate uterine tone. Uterine fundus was found to be firm and below the umbilicus upon fundal massage. Thorough examination of the cervix, vagina, periurethral area, and perineum revealed a large first degree laceration that was infiltrated with lidocaine and repaired with 2-0 vicryl in a running fashion. The patient is stable and allowed to begin the bonding process.
[2024-04-12] MEDS: LIDOCAINE 0.5% (PF) 5 MG/ML (50 ML SDV) SQ PRN (23:57)
[2024-04-13] MEDS: IBUPROFEN 600 MG TAB PO PRN (02:41)
[2024-04-13 03:42] LABS: Urine Alcohol Negative (Negative)
[2024-04-13 03:43] LABS: Urine Barbiturate Negative (Negative); Urine Cocaine Negative (Negative); Urine Methadone Positive (Negative); Urine Opiates Negative (Negative); Urine Phencyclidine Negative (Negative)
[2024-04-13] MEDS: SENNOSIDES-DOCUSATE SODIUM 1 EACH TAB PO SCH (08:01)
[2024-04-13 08:05] LABS: Basophils % (A) 0 %; Eosinophils # (A) 0.1 k/uL (0-0.7); Eosinophils % (A) 0 %; HCT 35.9 % (34.0-46.0); Lymphocytes # (A) 2.1 k/uL (1.0-4.8); Lymphocytes % (A) 13 %; MCH 31.9 pg (25.0-35.0); MCHC 33.5 g/dL (31.0-37.0); MCV 95.2 fL (80.0-100.0); Mean Platelet Volume 10.3; Monocytes # (A) 0.8 k/uL (0-1.0); Monocytes % (A) 5 %; Neutrophils # (A) 12.5 k/uL (1.3-7.7); Neutrophils % (A) 79 %; Platelet Count 199 k/uL (150-450); RBC 3.76 m/uL (3.80-5.40); RDW 13.7 % (11.5-15.5); WBC 15.8 k/uL (3.8-10.6)
--- NOTE | 2024-04-13 08:52 | P.PNOBGVD ---
Subjective - Subjective Principal diagnosis: s/p vaginal delivery Interval history: The patient is doing well this morning and had no acute events overnight. She has no complaints this morning. She reports minimal lochia, passing flatus, voiding without difficulty, ambulating, and eating/drinking without nausea or vomiting. She is breast feeding her infant but having difficulty with latch, she hopes to work with today. She denies chest pain, shortness of breathing, fevers, or chills overnight. She denies pain or swelling in the legs. Patient reports: Reports appetite normal, Reports voiding normally, Reports pain well controlled, Reports ambulating normally [place]: doing well Objective - Latest Vital Signs Latest vital signs: Vital Signs Temp Pulse Resp BP Pulse Ox 04/13/24 08:00 97.9 F 75 15 116/78 04/13/24 03:49 98.1 F 73 17 115/74 96 04/13/24 01:49 97.3 F L 89 17 118/71 98 04/13/24 01:34 95 17 116/65 98 04/13/24 01:19 88 16 118/67 99 04/13/24 01:04 98.3 F 79 17 118/62 98 04/13/24 00:49 86 17 112/63 97 04/13/24 00:34 96 17 110/59 96 04/13/24 00:19 90 17 107/59 96 04/13/24 00:04 94 17 115/60 97 04/12/24 23:49 98.4 F 89 18 118/67 97 Intake and Output 04/12/24 04/13/24 04/13/24 22:59 06:59 14:59 Intake Total 178.867 Output Total 687 Balance -508.133 Intake: Intake, IV Titration 178.867 Amount Oxytocin 30 Units/500 ml 178.867 Ns 30 unit In Saline 1 500ml.bag @ Per Protocol IV .[facility] Rx#:[id number] Output: Urine 350 Estimated Blood Loss 200 Output, Quantitative 137 Blood Loss Other: # Voids 3 1 Weight 95.254 kg - Exam Extremities: Present: normal Abdomen: Present: normal appearance, soft Uterus: Present: normal, firm - Labs Labs: Abnormal Lab Results - Last 24 Hours (Table) 04/12/24 04/12/24 04/13/24 Range/Units 20:07 20:10 07:24 WBC 18.6 H 15.8 H (3.8-10.6) k/uL RBC 3.76 L (3.80-5.40) m/uL Neutrophils # 16.3 H 12.5 H (1.3-7.7) k/uL Urine Methadone Screen Positive A (Negative) Assessment and Plan Assessment: 33 year old now PPD#1 s/p normal vaginal delivery Plan: 1. . Patient meeting all milestones appropriately. Continue to monitor. 2. Viable female infant. In the nursery, being scored for Methadone withdrawal. Dispo: Anticipate discharge home tomorrow.
[2024-04-14 01:08] VITALS: RESP 16
[2024-04-14 07:48] VITALS: BP 134/85; PULSE 88; TEMP 98.3
--- NOTE | 2024-04-14 08:42 | P.DS ---
Providers Date of admission: 04/12/24 19:48 Expected date of discharge: 04/14/24 Attending physician: Rebeca Pickard MD Primary care physician: Stated None Hospital Course: Ms. Foster is a 33 year old now PPD#2 s/p normal sponatenous vaginal delivery who is doing well this morning and desire discharge home. Her antepartum course was complicated by Methodone use through [facility]. She came in laboring the evening before her scheduled induction of labor. Pitocin augmentation was started and amniotomy was performed. The patient had an uneventful delivery with a first degree laceration. Her course has been uncomplicated. She reports minimal lochia, passing flatus, voiding without difficulty, ambulating, and eating/drinking without nausea or vomiting. Infant doing well in the nursery, being scored for Methadone withdrawal. She denies chest pain, shortness of breathing, fevers, or chills overnight. She denies pain or swelling in the legs. restrictions are reviewed with the patient including pelvic rest for 6 weeks. The patient is encouraged to call the office if she experiences any heavy bleeding, foul-smelling discharge, breast complaints, or any if she has any other concerns. She will follow up in the office with in 6 weeks for exam. She plans to use Motrin and Tylenol as needed OTC. All questions are answered. Assessment: 33 year old now PPD#2 s/p Patient Condition at Discharge: Good Plan - Discharge Summary Discharge Rx Participant: Yes New Discharge Prescriptions: No Action Methadone [Dolophine] 37 mg PO DAILY Vit No.179/Iron/Folic [ Tablet] 1 each PO DAILY Ferrous Sulfate [Feosol] 325 mg PO DAILY Sertraline [Zoloft] 25 mg PO DAILY Discharge Medication List Methadone [Dolophine] 37 mg PO DAILY 10/03/20 [History] Ferrous Sulfate [Feosol] 325 mg PO DAILY 03/25/24 [History] Vit No.179/Iron/Folic [ Tablet] 1 each PO DAILY 03/25/24 [History] Sertraline [Zoloft] 25 mg PO DAILY 03/25/24 [History] Follow up Appointment(s)/Referral(s): Rebeca Pickard MD [STAFF PHYSICIAN] - 05/24/24 11:00 am Activity/Diet/Wound Care/Special Instructions: Instructions 1. Do not begin any exercise program for 3 weeks. 2. Do not resume sexual relations for 6 weeks or longer if uncomfortable. 3. You may take tub baths or showers at any time. 4. You may use tampons if desired after 6 weeks. 5. Keep any areas repaired with stitches clean and dry. 6. If you are not nursing, wear a good fitting, supportive bra during the day and limit fluid intake for at least 1 week to prevent breast engorgement. 7. Call the office, , within the next week to make appointment for your 6 week checkup if it has not already been made. 8. Report any of the following occurrences to the doctor promptly: a. Heavy, excessive bleeding b. Chills, fever c. Burning or frequency of urination d. Pain or redness and breasts if nursing e. Increasing pain or swelling of vulva (stitches). In addition to the above instructions, the following additional should be followed: 1. No heavy lifting or straining (exercising) until after 6 week checkup. 2. Keep abdominal incision clean and dry: You may wear a dressing if more comfortable. 3. Make office appointment for 2 weeks after delivery date. Discharge Disposition: HOME SELF-CARE
== END 2024-04-14 09:10 | disposition home or self-care (01) | DRG 560 ==
LOC: FBPOP 17:26 → 4FBP 19:48
PROVIDERS: ADMIT Obstetrics & Gynecology; ATTEND Obstetrics & Gynecology
PROC: 0HQ9XZZ Repair Perineum Skin, External Approach (ICD-10-PCS; principal; 2024-04-12)
PROC: 10E0XZZ Delivery of Products of Conception, External Approach (ICD-10-PCS; principal; 2024-04-12)
PROC: 10907ZC Drainage of Amniotic Fluid, Therapeutic from Products of Conception, Via Natural or Artificial Opening (ICD-10-PCS; principal; 2024-04-12)
PROC: 4A1HXCZ Monitoring of Products of Conception, Cardiac Rate, External Approach (ICD-10-PCS; principal; 2024-04-12)
DX: O34.219 Maternal care for unspecified type scar from previous cesarean delivery (principal); O70.0 First degree perineal laceration during delivery; O99.324 Drug use complicating childbirth; O99.334 Smoking (tobacco) complicating childbirth; O99.344 Other mental disorders complicating childbirth; F17.290 Nicotine dependence, other tobacco product, uncomplicated; F11.23 Opioid dependence with withdrawal; O99.52 Diseases of the respiratory system complicating childbirth; K56.41 Fecal impaction; J45.20 Mild intermittent asthma, uncomplicated; F32.A Depression, unspecified; F41.9 Anxiety disorder, unspecified; Z37.0 Single live birth; Z3A.39 39 weeks gestation of pregnancy; Z79.899 Other long term (current) drug therapy; Z91.013 Allergy to seafood
CPT/HCPCS: 59025; 80306; 85025; 86850; 86900; 86901; 99213